=== PATIENT | male | born 1965 | race Caucasian/White ===

== ENCOUNTER 2020-02-20 10:13 | Outpatient (CLI) | payer BC ==
--- NOTE | 2020-02-20 11:04 | CT ---
CT ABDOMEN AND PELVIS WITH IV CONTRAST 02/20/2020 CLINICAL INFORMATION: Abdominal cramping. Abdominal discomfort/pain for past several months. COMPARISON: None. Technique: Multiple contiguous axial CT images are obtained through the abdomen and pelvis with IV contrast. Cor onal reformatted images are provided. FINDINGS: Lower Chest: Lung bases are clear. Vessels: Abdominal aorta is normal in caliber. Abdomen: Portal vein:Patent Gallbladder: Within normal limits for CT imaging. Liver: within normal limits. Spleen: within normal limits. Pancreas: within normal limits. Adrenals: within normal limits. Kidneys: within normal limits. Bowel: Small amount retained fecal material is seen throughout the colon. Loops of small bowel are no rmal in caliber. Appendix: The appendix is visualized and normal in caliber. Peritoneum: No ascites or free air; no fluid collection. Mesentery and Retroperitoneum: No enlarged mesenteric or retroperitoneal lymph nodes. Abdominal Wall: Tiny fat-containing umbilical hernia. Pelvis: Reproductive Organs: Prostate gland is enlarged measuring 5.5 cm in transverse dimensions. Bladder: within normal limits. Bones: Degenerative changes in the spine greatest at the L5-S1 level. IMPRESSION: 1. No acute findings in the abdomen or pelvis. 2. Mild enlargement of the prostate gland.
--- NOTE | 2020-02-20 12:03 | MRI ---
Exam: Brain MRI with and without contrast HISTORY: Persistent headache for months. COMPARISON: None FINDINGS: Gradient echo sequence: No hemorrhage Calvarium: Appropriate T1 marrow signal intensity Midline brain parenchyma: Unremarkable Cerebrum:No parenchymal mass, mass effect or midline shift. Brain volume is age-appropriate. Cortical bullock-white matter differentiation is preserved. Minimal T2 and FLAIR white matter hyperintensities are noted in the left silva radiata and left frontal subcortical white matter. Tea Bag Packer of les ion measures 0.4 cm. Ventricles: No evidence of hydrocephalus. Sinuses and mastoid air cells: Adequate aeration Diffusion: Central arterial flow is maintained. Absent restricted diffusion. Postcontrast images: No pathologic enhancement of the brain parenchyma. IMPRESSION: 1. Absent restricted diffusion. No acute infarction 2. No pathologic enhancement of the brain parenchyma 3. Nonspecific minimal T2 and FLAIR white matter hyperintensities. Differential considerations includ e a demyelinating process other than multiple sclerosis, sequelae of migraine headaches, sequelae of vasculitis, Lyme disease.
== END 2020-02-20 10:14 | disposition home or self-care (01) ==
LOC: SCSCT 10:13
PROVIDERS: ATTEND Internal Medicine Gastroenterology
DX: R51.9 Headache, unspecified (principal); R10.9 Unspecified abdominal pain; N40.0 Benign prostatic hyperplasia without lower urinary tract symptoms; R90.82 White matter disease, unspecified
CPT/HCPCS: 70553; 74177